=== PATIENT | female | born 1980 | race Caucasian/White ===

== ENCOUNTER 2020-02-11 22:32 | Emergency (ER) | payer MEDICAID ==
[~2020-02-11] VITALS: Ht 152.4 cm; Wt 78.7 kg
[~2020-02-11 22:32] MED LIST: INSU100I28 SQ; METF-416 MT
[2020-02-12 03:25] VITALS: BP 120/76
== END 2020-02-12 03:26 | disposition home or self-care (01) ==
LOC: ER 22:32
DX: R06.02 Shortness of breath (principal); E11.9 Type 2 diabetes mellitus without complications; Z79.4 Long term (current) use of insulin
CPT/HCPCS: 71045; 93005; 99283